=== PATIENT | male | born 2000 | race Caucasian/White ===

== ENCOUNTER 2024-06-21 08:25 | Outpatient (CLI) | payer OTHER, SELFPAY | END 2024-06-21 08:26 | disposition home or self-care (01) | PROVIDERS: Visit Provider Family Medicine | DX: Z00.00 Encounter for general adult medical examination without abnormal findings (principal); R53.83 Other fatigue; G43.909 Migraine, unspecified, not intractable, without status migrainosus | CPT/HCPCS: 80048; 80061; 82306; 84443 ==

== ENCOUNTER 2025-06-21 00:15 | Emergency (ER) | payer OTHER, SELFPAY ==
[2025-06-21 00:17] VITALS: BP 131/88; PULSE 68; RESP 16; TEMP 35.8; O2SAT 98; BMI 29.6
--- OUTSIDE RECORDS SUMMARY | 2025-06-21 00:17 | XMS_ITS | Clinical Summary ---
Author Organization [employer] [facility] Address [address] [place] [id number] Care Team Providers Care Student Outreach Coordinator Name Role Phone Pcp, No Primary Care Provider Unavailabl e Allergies No known active allergies Medications multivit with [id number] (ONE-A-DAY MEN'S MULTIVITAMIN) 400-300 mcg tab Take by mouth once daily. 0 05/15/2017 Active FLUoxetine (PROzac) 20 mg capsule Take 20 mg by mouth once daily. Active propranoloL (INDERAL) 60 mg tablet Take 60 mg by mouth two times daily. Active cholecalciferol, vitamin D3, (VITAMIN D3 ORAL) Take by mouth. Active cetirizine (Aller-Jonathon) 10 mg tablet Take 10 mg by mouth once daily. Active Active Problems No known active problems Immunizations Immunization Administration Dates Next Due Tdap 09/03/2024 Social History Tobacco Use Types Packs/Day Years Used Date Smoking Tobacco: Passive Smo ke Exposure - Never Smoker Social Connections Answer Date Recorded Do you often feel lonely or isolated from those around you? 0 09/03/2024 Financial Resource Strain Answer Date R ecorded Difficulty of Paying Living Expenses 3 12/24/2024 Difficulty of Paying Living Expenses Not on file 12/24/2024 Food Insecurity Answer Date Recorded Do you worry your food will run out before you are able to buy more? 1 09/03/2024 Transportation Needs Answer Date Record ed Does lack of transportation keep you from medica l appointments? 1 09/03/2024 Does lack of transportation keep you from work, meetings or getting things that you need? 1 09/03/2024 Housing Stability Answer Date Recorded What is your housing situation today? 1 09/03/2024 Utilities Answer Date Recorded Do you have trouble paying f or utilities (for example, heat, electricity, water, phone)? 1 09/03/2024 Sex and Gender Information Value Date Recorded Sex Assigned at Not on file Legal Sex Male 10:10 AM CDT Gender Identity Not on file Sexual Orientation Not on file Obstetrics History Last Filed Vital Signs Vital Sign Reading Time Taken Comments Blood Pressure 134/86 09/03/2024 6:31 PM CDT Pulse 75 09/03/2024 6:31 PM CDT Temperature 36.4 C (97.6 F) 09/03/2024 6:31 PM CDT Respiratory Rate - - Oxygen Saturation 97% 09/03/2024 6:31 PM CDT Inhaled Oxygen Concentration - - Weight 70.5 kg (155 lb 6.4 oz) 05/15/2017 10:55 AM CDT Height 182 cm (5' 11.65) 05/15/2017 10:55 AM CD T Body Mass Index 21.28 05/15/2017 10:55 AM CDT Plan of Treatment Health Maintenance Due Date Last Done Comments Depression screening for age 12+ 2014 HIV for age 15-65 2017 HPV series for age 9-26 (1 - Male 3-dose series) 2017 BMI (ht and wt on same day) for age 18+ 02/29/2020 Hepatitis C screening for ag e 18-79 02/29/2020 Hepatitis B series for 19+ ( 1 of 3 - 19+ 3-dose series) 2021 COVID-19 vaccine series (2 - season) 2024 03/04/2021 Influenza Vaccine (#1) 2025 Tetanus booster 09/03/2034 09/03/2024 Pneumococcal series for age 6-49 Aged Out No longer eligible based on patient's age to complete this topic Insurance RAMU SHEIKH Care Teams Student Outreach Coordinator Relationship Specialty Start Date End Date Pcp, No . PCP - General 09/02/18
--- NOTE | 2025-06-21 00:24 | ED.ANIMALBIT ---
HPI - Animal Bite General Time Seen by Provider: 00:25 Date Seen: 06/21/25 Chief Complaint: Animal Bite Stated Complaint: cat bite R hand Time Seen by Provider: 06/21/25 00:24 Source: patient Mode of arrival: ambulatory History of Present Illness HPI narrative: Miguel is a 25-year-old male who presents the emergency department for evaluation of a cat bite. Patient reports that they have been taking care of a stray cat for the past 3 weeks. Patient states that he was trying to pick the cat up and believes he hurt the cat's stomach and the cat bit his right hand. Patient reports incident happened just prior to arrival. Patient states does not believe cats immunizations are up-to-date and is a stray cat however they have been taking care of it at their house the past 3 weeks and have noticed no abnormal behavior. Patient reports his immunizations are up-to-date, last tetanus was 08/2024. Patient denies any pain, redness, tingling, numbness, no other complaints. Related Data Previous Rx's ?Medication ?Instructions ?Recorded propranolol 60 mg capsule,24 60 mg PO QHS #90 caps 07/19/24 hr,extended release cetirizine 10 mg tablet (Zyrtec) 10 mg PO QDAY PRN allergy symptoms 10/11/24 #90 tabs fluoxetine 20 mg capsule (Prozac) 20 mg PO QDAY #90 caps 10/11/24 sumatriptan succinate 50 mg tablet See Rx Instructions PO .COMPLEX 10/11/24 (Imitrex) #10 tabs cholecalciferol (vitamin D3) 125 125 mcg PO QDAY #90 caps 10/19/24 mcg (5,000 unit) capsule Allergies Allergy/AdvReac Type Severity Reaction Status Date / Time No Known Drug Allergies Allergy Verified 01/04/25 14:40 Review of Systems Narrative: Past medical history, past surgical history, medications, allergies, family history, and social history were reviewed with the patient. No additional pertinent items. A medically appropriate review of systems was performed with pertinent positives and negatives noted in HPI, all other systems negative. [facility] Medical History Depression with anxiety ?F41.8 - Other specified anxiety disorders (ICD-10) Vitamin D deficiency ?E55.9 - Vitamin D deficiency, unspecified (ICD-10) Migraine ?G43.909 - Migraine, unspecified, not intractable, without status migrainosus (ICD-10) Allergic rhinitis ?J30.9 - Allergic rhinitis, unspecified (ICD-10) Social History Smoking Status: Never smoker Do you use any of these nicotine containing products: None Second hand tobacco smoke exposure: No How often do you have a drink containing alcohol: never How often do you have six or more drinks on one occasion: Never AUDIT-C Alcohol total score: 0 Non-prescribed substance use: denies use service: No Exam Narrative: Exam Narrative: General: Afebrile, no acute distress HEENT: Normocephalic, atraumatic, conjunctiva normal. MMM Neck: non-tender, supple Cardio: regular rate. regular rhythm Resp: Normal work of breathing, no respiratory distress, lungs clear bilaterally, no wheezing, rhonchi, rales Chest/Back: no visual signs of trauma, no midline tenderness, no CVA tenderness Abdomen: soft, non distension, no tenderness, no peritoneal signs Neuro: alert and fully oriented. CN II-XII grossly intact. Grossly normal strength and sensation in all extremities. MSK: +cat bite/puncture wound to palmar aspect of right hand with no drainage, no bleeding, no TTP, full ROM at wrist, MCP, PIP, DIP. Normal range of motion Integumentary/Skin: no rash visualized, normal color Psych: normal affect, normal behavior Const: Vital Signs, click to edit/add: Vital Signs - 24 hr 06/21/25 00:17 Temperature 96.4 F L Pulse Rate [Right Pulse Oximeter] 68 Respiratory Rate 16 Blood Pressure [Ri ght Upper Arm] 131/88 Pulse Oximetry 98 Oxygen Delivery Me thod Room Air Course Vital Signs Vital signs: Initial Vital Signs Temperature 96.4 F L 06/21/25 00:17 Temperature Source Temporal Artery Scan 06/21/25 00:17 Pulse Rate 68 06/21/25 00:17 Pulse Rhythm Regular 06/21/25 00:17 Respiratory Rate 16 06/21/25 00:17 Blood Pressure 131/88 06/21/25 00:17 Blood Pressure Mean 102 06/21/25 00:17 Blood Pressure Position Sitting 06/21/25 00:17 Pulse Oximetry 98 06/21/25 00:17 Oxygen Delivery Method Room Air 06/21/25 00:17 Vital Signs Temperature 96.4 F L 06/21/25 00:17 Pulse Rate 68 06/21/25 00:17 Respiratory Rate 16 06/21/25 00:17 Blood Pressure 131/88 06/21/25 00:17 Pulse Oximetry 98 06/21/25 00:17 Oxygen Delivery Method Room Air 06/21/25 00:17 Temperature 96.4 F L 06/21/25 00:17 Pulse Rate 68 06/21/25 00:17 Respiratory Rate 16 06/21/25 00:17 Blood Pressure 131/88 06/21/25 00:17 Pulse Oximetry 98 06/21/25 00:17 Oxygen Delivery Method Room Air 06/21/25 00:17 MDM - Animal Bite MDM Narrative Medical decision making narrative: Miguel is a 25-year-old male who presents the emergency department for evaluation of a cat bite. Upon arrival patient is nontoxic appearing, afebrile, no distress. Patient here with cat bite to his right hand. Wound was irrigated upon arrival, no focal neurological deficit, full range of motion, no significant swelling, no erythema, no drainage, no bleeding. Patient's tetanus 09/15. I discussed management with patient. Will start on prophylactic antibiotics (Insty med for Augmentin given), will hold off on rabies at this time as patient has had the cat at his house for the past few weeks with no abnormal signs of behavior, it was a provoked bite, patient will also continue to be monitoring the cat home. Discussed cats over low risk. Patient feels comfortable with discharge, continue supportive care, antibiotics. Strict return precautions discussed. Patient understands and agrees with the plan. Medical Records Attestation: I reviewed the patient's medical records. Discharge Plan Discharge Clinical Impression: Cat bite Patient Disposition: Home, Self-Care Condition: Stable Additional Instructions: Please follow-up with your primary care provider in the next 5-7 days for further evaluation and follow-up. Please call to schedule an appointment. Please take antibiotics twice daily as directed, keep wound clean, dry. Please continue to monitor your cat for any abnormal signs of behavior. Please return to the emergency department if he develop high fever, significant increase in pain, redness, swelling, or drainage from the wound. It is a pleasure taking care of you today. We hope you feel better soon. Prescriptions: No Action propranolol 60 mg capsule,extended release 24 hr 60 mg PO QHS Qty: 90 3RF sumatriptan succinate [Imitrex] 50 mg tablet See Rx Instructions PO .COMPLEX Qty: 10 5RF Rx Instructions: take 1 tab at onset of headache; if no relief may repeat 1 tab after at least 2 hrs; max = 4 tabs/24 hr PO cetirizine [Zyrtec] 10 mg tablet 10 mg PO QDAY PRN (Reason: allergy symptoms) Qty: 90 1RF fluoxetine [Prozac] 20 mg capsule 20 mg PO QDAY Qty: 90 3RF cholecalciferol (vitamin D3) 125 mcg (5,000 unit) capsule 125 mcg PO QDAY Qty: 90 1RF Follow Up/Referrals: Provider,Not a Local [Non-Staff, Family Practice] Stand Alone Forms: MyHealth Info Instructions
[2025-06-21 00:48] VITALS: BP 121/81; PULSE 72; RESP 18
== END 2025-06-21 00:49 | disposition home or self-care (01) ==
LOC: ED 00:42
PROVIDERS: Emergency Provider Emergency Medicine; PCP Family Medicine
DX: S61.431A Puncture wound without foreign body of right hand, initial encounter (principal); W55.01XA Bitten by cat, initial encounter
CPT/HCPCS: 99283; 99285